=== PATIENT | male | born 1940 ===

== ENCOUNTER 2018-03-11 08:45 | Outpatient (CLI) | payer OTHER ==
[~2018-03-11 08:45] MED LIST: DIOVAN160 M1; METOPROLOL SUCC50 MG; TAMSULOSIN HCL0.4 MG PO
== END 2018-03-11 09:00 | disposition home or self-care (01) ==
LOC: NUCLEAR 08:45
DX: I20.1 Angina pectoris with documented spasm (principal)

== ENCOUNTER 2018-08-23 14:30 | Outpatient (CLI) | payer OTHER | END 2018-08-23 14:35 | disposition home or self-care (01) | LOC: RAD 14:30 | DX: I10 Essential (primary) hypertension (principal) ==

== ENCOUNTER 2018-08-23 15:14 | Outpatient (CLI) | payer OTHER | END 2018-08-23 15:20 | disposition home or self-care (01) | LOC: LAB 15:14 | DX: I10 Essential (primary) hypertension (principal); R33.8 Other retention of urine; D68.8 Other specified coagulation defects ==

== ENCOUNTER 2018-08-25 10:50 | Day surgery (SDC) | payer OTHER | END 2018-08-26 07:47 | disposition home or self-care (01) | LOC: CIR.AMB 10:50 → SURH 21:47 → CIR.AMB 21:47 → SURH 08-26 11:13 | DX: N40.1 Benign prostatic hyperplasia with lower urinary tract symptoms (principal); R33.8 Other retention of urine; I10 Essential (primary) hypertension; E11.9 Type 2 diabetes mellitus without complications ==

== ENCOUNTER 2021-04-21 17:53 | Inpatient (IN) | payer OTHER ==
[~2021-04-21] VITALS: Ht 185.4 cm; Wt 97.5 kg
[2021-04-24] MEDS ORDERED: VALSARTAN80 MG (08:21)
[2021-04-24] MEDS ORDERED: PANTOPRAZOLE SO40 MG (08:21)
[2021-04-24] MEDS ORDERED: FINASTERIDE5 MG (08:21)
== END 2021-04-25 11:30 | disposition home or self-care (01) | DRG 310 ==
LOC: ER 17:53 → MEDJ 04-23 16:07
PROVIDERS: ADMIT Internal Medicine Cardiovascular Disease; ATTEND Internal Medicine Cardiovascular Disease
PROC: 4A12X4Z Monitoring of Cardiac Electrical Activity, External Approach (ICD-10-PCS; principal; 2021-04-24)
DX: I48.91 Unspecified atrial fibrillation (principal); E11.9 Type 2 diabetes mellitus without complications; Z20.822 Contact with and (suspected) exposure to COVID-19; I10 Essential (primary) hypertension